=== PATIENT | male | born 2000 | race Hispanic/Latino ===

== ENCOUNTER 2020-12-19 23:02 | Emergency (ER) | payer BC ==
[2020-12-19] MEDS ORDERED: Ketorolac Tromethamine 30 MG/ML VIAL ONE (23:11)
[2020-12-19] MEDS ORDERED: Fentanyl 100 MCG/2 ML VIAL ONE ×2 (23:11→23:43)
[2020-12-19] MEDS ORDERED: Lidocaine 1% w/Epinephrine 1:100K 20 ML VIAL ONE (23:43)
[2020-12-19] MEDS ORDERED: Lidocaine 1% PF 5 ML VIAL ONE (23:46)
[2020-12-20] MEDS ORDERED: Boostrix 0.5 ML (Tdap) VIAL ONE (00:32)
== END 2020-12-20 01:31 | disposition left against medical advice (07) ==
LOC: ERS 23:02
DX: S43.015A Anterior dislocation of left humerus, initial encounter (principal); I10 Essential (primary) hypertension; X58.XXXA Exposure to other specified factors, initial encounter
CPT/HCPCS: 23650; 90471; 90715; 96372; 96374; J1885; J3010